=== PATIENT | female | born 1975 | race Caucasian/White ===

== ENCOUNTER 2017-04-27 10:25 | Emergency (ER) | payer MEDICAID ==
[~2017-04-27] VITALS: Ht 157.5 cm; Wt 77.2 kg
[~2017-04-27 10:25] MED LIST: CITA20TA9 PO; DIAZ5TAB PO; DIPH50CA62 PO; FLUO20CA19 PO; IBUP-1222; LINA145C PO; MULT-53 PO; NORG1TAB10 PO; OMEP20TA62 PO; OXYB5TAB7 PO; OXYC1TAB8; PANT40TA5 PO; POLY17PO5 PO; PROM25SU35; TRAZ100T15 PO; VENL37.52 PO; [UNRECOGNIZED DRUG - OTHER] PO
[2017-04-27] MEDS ORDERED: SODIUM CHLORIDE 0.9% 1,000 ML IV ONE (11:24)
[2017-04-27] MEDS ORDERED: SODIUM CHLORIDE FLUSH 10ML SYR IVF ONE (11:30)
[2017-04-27] MEDS ORDERED: DIPHENHYDRAMINE 50 MG/ML, 1ML IVPush ONE (11:30)
[2017-04-27] MEDS ORDERED: PROCHLORPERAZINE 5 MG/ML, 2ML IVPush ONE (11:30)
[2017-04-27] MEDS ORDERED: KETOROLAC 30 MG/1 ML IVPush ONE (11:30)
[2017-04-27] MEDS ORDERED: SODIUM CHLORIDE 0.9% 1,000ML IVBOLUS ONE (11:30)
[2017-04-27] MEDS ORDERED: KETOROLAC 30 MG/1 ML ONE (11:42)
[2017-04-27] MEDS ORDERED: PROCHLORPERAZINE 5 MG/ML, 2ML ONE (11:42)
[2017-04-27] MEDS ORDERED: DIPHENHYDRAMINE 50 MG/ML, 1ML ONE (11:42)
[2017-04-27 14:16] VITALS: BP 106/62
== END 2017-04-27 14:18 | disposition home or self-care (01) ==
LOC: ED 12:31
DX: G43.011 Migraine without aura, intractable, with status migrainosus (principal); Z90.710 Acquired absence of both cervix and uterus; Z88.5 Allergy status to narcotic agent
CPT/HCPCS: 96361; 96374; 96375; 99285; J0780; J1200; J1885; J7030